=== PATIENT | female | born 1980 ===

== ENCOUNTER 2018-04-27 20:45 | Emergency (ER) | payer SELFPAY ==
[2018-04-27 21:20] VITALS: TEMP 98.7
[2018-04-27] MEDS ORDERED: Sodium Chloride 0.9% 1,000 ML IV ONE (21:33)
--- NOTE | 2018-04-27 21:33 | C.PDOC ---
History Of Present Illness 37 year old female, , presents to the ED c/o vaginal bleeding for the past 2 days ago. Patient also c/o mild pelvic cramping. Patient denies fever, chills, nausea, vomit, dysuria, hematuria, weakness, numbness. Time Seen by Provider: 04/27/18 21:32 Chief Complaint (Nursing): Female Genitourinary History Per: Patient History/Exam Limitations: no limitations Onset/Duration Of Symptoms: Days (2) Current Symptoms Are (Timing): Still Present Quality Of Discomfort: Cramping Associated Symptoms: denies: Nausea, Vomiting, Diarrhea, Urinary Symptoms Recent travel outside of the [place]: No Additional History Per: Patient Abnormal Vaginal Bleeding: Yes Last Menstral Period: 02/24/18 : 1 Para: 0 Past Medical History Reviewed: Historical Data, Nursing Documentation, Vital Signs Vital Signs: Last Vital Signs Temp 98.7 F 04/27/18 21:13 Pulse 79 04/27/18 21:13 Resp 16 04/27/18 21:13 BP 112/74 04/27/18 21:13 Pulse Ox 100 04/27/18 21:13 - Medical History PMH: No Chronic Diseases Surgical History: No Surg Hx Family History: States: Unknown Family Hx - Social History Hx Alcohol Use: No Hx Substance Use: No - Immunization History Hx Tetanus Toxoid Vaccination: No Hx Influenza Vaccination: No Hx Pneumococcal Vaccination: No Review Of Systems Constitutional: Negative for: Fever, Chills Cardiovascular: Negative for: Chest Pain, Palpitations Respiratory: Negative for: Cough, Shortness of Breath Gastrointestinal: Positive for: Abdominal Pain. Negative for: Nausea, Vomiting Genitourinary: Positive for: Vaginal Bleeding. Negative for: Dysuria, Hematuria Neurological: Negative for: Weakness, Numbness Physical Exam - Physical Exam Appears: Non-toxic, No Acute Distress Skin: Warm, Dry Head: Normacephalic Eye(s): bilateral: Normal Inspection Neck: Supple Chest: Symmetrical Cardiovascular: Rhythm Regular Respiratory: No Rales, No Rhonchi, No Wheezing Gastrointestinal/Abdominal: Soft, Tenderness (mild suprapubic), No Guarding, No Rebound Extremity: Bilateral: Atraumatic, Normal Color And Temperature, Normal ROM Neurological/Psych: Oriented x3, Normal Speech, Normal Cognition Gait: Steady ED Course And Treatment - Laboratory Results Result Diagrams: 04/27/18 22:40 04/27/18 22:40 O2 Sat by Pulse Oximetry: 100 (ON RA) Pulse Ox Interpretation: Normal - CT Scan/US pelvic US Other Rad Studies (CT/US): Read By Radiologist, Radiology Report Reviewed CT/US Interpretation: EXAM: US Pelvis, Complete Transvaginal and Transabdominal. COMPARISON: None provided. CLINICAL HISTORY: Vag bleed. TECHNIQUE: Transvaginal and transabdominal pelvic ultrasound (complete) with image documentation. FINDINGS: ENDOMETRIUM: The endometrium is grossly thickened and heterogeneous, measuring 2.5 cm and demonstrates internal vascularity. In the setting of vaginal bleeding and a positive urine hCG test, this most probably represents retained products of conception. UTERUS/CERVIX: Uterus measures 9.3 x 4.6 x 5.1 cm and is retroverted. No intrauterine gestation is seen. RIGHT OVARY: Right ovary measures 3.2 x 1.7 x 1.7 cm. LEFT OVARY: Left ovary measures 2.3 x 1.0 x 2.1 cm. FREE FLUID: No free fluid. MISCELLANEOUS: Both ovaries demonstrate normal Doppler waveforms. IMPRESSION: 1. The endometrium is grossly thickened and heterogeneous, measuring 2.5 cm and demonstrates internal vascularity. In the setting of vaginal bleeding and a positive urine hCG test, this most probably represents retained products of conception. 2. No intrauterine gestation is seen. 3. These findings are being telephoned to the referring clinician's at the time of interpretation. . Electronically signed on Apr 28, 2018 12:28:30 AM EDT by: Triny Pulido M.D., Certified by ABR, MSK, Neuroradiology Progress Note: Plan: - Labs. - IV fluids. - UA. - Pelvic US. pt had some more vaginal bleeding, with clots. spoke with dr ledesma [facility], will come and see the pt in the ed Reevaluation Time: 01:07 Reassessment Condition: Improved Medical Decision Making Medical Decision Making: Upon provider reevaluation patient is feeling better, is medically stable, and requires no further treatment in the ED at this time. Patient will be discharged home with Rx for cytotec, doxy . Counseling was provided and all questions were answered regarding diagnosis and need for follow up with the referred clinic. There is agreement to discharge plan. Return if symptoms persist or worsen. Disposition Counseled Patient/Family Regarding: Studies Performed, Diagnosis, Need For Followup, Rx Given - Disposition Referrals: [facility] [Outside] [facility] [Outside] [facility] [Outside] [facility] [Outside] Disposition: HOME/ ROUTINE Disposition Time: 21:33 Condition: FAIR Prescriptions: Doxycycline Hyclate 100 mg PO BID #14 capsule Ibuprofen [Motrin Tab] 800 mg PO TID PRN #12 tab PRN Reason: Pain, Moderate (4-7) miSOPROStol [Cytotec] 400 mcg PO TID #6 tab Instructions: Miscarriage (DC) Forms: [employer] (Turkmen) Print Language: VIETNAMESE - Clinical Impression Clinical Impression: Miscarriage - Scribe Statement The provider has reviewed the documentation as recorded by the Scribe Gumaro Charles All medical record entries made by the Scribe were at my direction and per sonally dictated by me. I have reviewed the chart and agree that the record accurately reflects my personal performance of the history, physical exam, medical decision making, and the department course for this patient. I have also personally directed, reviewed, and agree with the discharge instructions and disposition.
[2018-04-27 22:29] LABS: URINE BILIRUBIN NEGATIVE (NEGATIVE); URINE BLOOD 2+ (NEGATIVE); URINE CLARITY Hazy (Clear); URINE COLOR Red (YELLOW); URINE GLUCOSE (UA) NORMAL (Normal); URINE LEUKOCYTE ESTERASE NEG Leu/uL (Negative); URINE PROTEIN 2+ mg/dL (NEGATIVE); URINE UROBILINOGEN NORMAL mg/dL (0.2-1.0)
[2018-04-27 22:45] LABS: BASO % 0.3 % (0.0-2.0); EOS % 0.4 % (0.0-4.0); HEMOGLOBIN 11.9 g/dL (11.0-16.0); LYMPH % 21.5 % (20.0-40.0); MEAN CELL VOLUME 90.1 fL (81.0-99.0); MEAN CORPUSCULAR HEMOGLOBIN 29.1 pg (27.0-31.0); MEAN CORPUSCULAR HGB CONC 32.4 g/dL (33.0-37.0); MEAN PLATELET VOLUME 8.7 fL (7.2-11.7); MONO # 0.8 K/uL (0.0-0.8); MONO % 8.8 % (0.0-10.0); NEUT # 6.5 K/uL (1.8-7.0); RBC 4.08 Mil/uL (3.80-5.20); WHITE BLOOD COUNT 9.4 K/uL (4.8-10.8)
[2018-04-27 22:56] LABS: INR 1.2; PROTHROMBIN TIME 12.9 SECONDS (9.7-12.2)
[2018-04-27 23:00] LABS: ALB/GLOB RATIO 1.3 (1.0-2.1); ALBUMIN 3.8 g/dL (3.5-5.0); ALT/SGPT 20 U/L (9-52); AST/SGOT 24 U/L (14-36); BLOOD UREA NITROGEN 8 mg/dL (7-17); CALCIUM 8.7 mg/dl (8.6-10.4); GFR NON-AFRICAN AMERICAN > 60
[2018-04-28] MEDS ORDERED: Sodium Chloride 0.9% 1,000 ML IV ONE (00:23)
[2018-04-28] MEDS ORDERED: Sodium Chloride 0.9% 1,000 ML ONE (00:28)
--- NOTE | 2018-04-28 01:38 | CP.PCM.CON ---
History of Present Illness - History of Present Illness History of Present Illness: Asked by Dr. West to see patient: approx 8 weeks, c/o vaginal bleeding; S/P ultrasound - probable retained products Patient received on stretcher in Multi-Purpose Room. Appears saddened. Awake, alert, oriented to time, person and place. 37 y.o. , LMP 02/24/18 GA 8w 6d presented to E.D. secondary to increased vaginal bleeding with passage of blood and clots associated with strong, crampylower abdominal pain pain scale 8/10 -onset 1700 hours 04/26/18. - HPI: 2 days of vaginal spotting, increasing to heavy vaginal bleeding as above. Known to be . 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 x 2 years. 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 Father alive -hx unk Review of Systems - Review of Systems All systems: reviewed and no additional remarkable complaints except - Reproductive: Female Reproductive:Female: As Per HPI Past Patient History - Infectious Disease Hx of Infectious Diseases: None - Tetanus Immunizations Tetanus Immunization: Unknown - Past Medical History & Family History Past Medical History?: No Pertinent Family History: Mother - hypertension - Past Social History Smoking Status: Never Smoked Drugs: Denies Home Situation {Lives}: With Family - CARDIAC Hx Cardiac Disorders: No - PULMONARY Hx Respiratory Disorders: No - NEUROLOGICAL Hx Neurological Disorder: No - HEENT Hx HEENT Problems: No - RENAL Hx Chronic Kidney Disease: No - ENDOCRINE/METABOLIC Hx Endocrine Disorders: No - HEMATOLOGICAL/ONCOLOGICAL Hx Anemia: Yes - INTEGUMENTARY Hx Dermatological Problems: No - MUSCULOSKELETAL/RHEUMATOLOGICAL Hx Musculoskeletal Disorders: No - GASTROINTESTINAL Hx Gastrointestinal Disorders: No - GENITOURINARY/GYNECOLOGICAL Hx Genitourinary Disorders: No LMP:: 02/24/18 : 1 Para: 0 Termination of : 0 - PSYCHIATRIC Hx Psychophysiologic Disorder: No Hx Substance Use: No - SURGICAL HISTORY Hx Surgeries: No - ANESTHESIA Hx Anesthesia: No Meds Home Medications: Home Medication List Medication Instructions Recorded Confirmed Type Doxycycline Hyclate 100 mg PO BID #14 capsule 04/28/18 Rx Ibuprofen [Motrin Tab] 800 mg PO TID PRN #12 tab 04/28/18 Rx miSOPROStol [Cytotec] 400 mcg PO TID #6 tab 04/28/18 Rx Allergies/Adverse Reactions: Allergies Allergy/AdvReac Type Severity Reaction Status Date / Time No Known Allergies Allergy Verified 04/27/18 21:19 Physical Exam - Constitutional Appears: Well, No Acute Distress - Head Exam Head Exam: NORMOCEPHALIC - Eye Exam Eye Exam: Normal appearance - ENT Exam ENT Exam: Mucous Membranes Moist - Neck Exam Neck exam: Positive for: Full Rom - Respiratory Exam Respiratory Exam: NORMAL BREATHING PATTERN - Cardiovascular Exam Cardiovascular Exam: REGULAR RHYTHM - GI/Abdominal Exam GI & Abdominal Exam: Normal Bowel Sounds, Soft - Exam Speculum exam: Vaginal Bleeding (Moderate vaginal bleeding. Tissue noted extruding from cervical os. Same removed with ring forceps (submited to pathology)) Bimanual exam: NORMAL BIMANUAL EXAM (Cervical - fingertip. Retroverted uterus, approx 8 cm, firm, mobile, appropriately mildly tender. No adnexl masses or tenderness. ) - Extremities Exam Extremities exam: Positive for: full ROM, normal inspection - Back Exam Back exam: NORMAL INSPECTION - Neurological Exam Neurological exam: Alert, Oriented x3 - Psychiatric Exam Additional comments: Appropriately sad, crying during vaginal exam and removal of tissue - Skin Skin Exam: Dry, Intact, Normal Color Results - Vital Signs Recent Vital Signs: Last Vital Signs Temp 98.7 F 04/27/18 21:13 Pulse 79 04/27/18 21:13 Resp 16 04/27/18 21:13 BP 112/74 04/27/18 21:13 Pulse Ox 100 04/28/18 01:10 - Labs Result Diagrams: 04/27/18 22:40 04/27/18 22:40 Labs: Laboratory Results - last 24 hr 04/27/18 04/27/18 04/27/18 22:06 22:06 22:40 WBC 9.4 RBC 4.08 Hgb 11.9 Hct 36.7 MCV 90.1 MCH 29.1 MCHC 32.4 L RDW 14.0 Plt Count 219 MPV 8.7 Neut % (Auto) 69.0 Lymph % (Auto) 21.5 Lucas % (Auto) 8.8 Eos % (Auto) 0.4 Baso % (Auto) 0.3 Neut # (Auto) 6.5 Lymph # (Auto) 2.0 Lucas # (Auto) 0.8 Eos # (Auto) 0.0 Baso # (Auto) 0.0 PT INR APTT Sodium Potassium Chloride Carbon Dioxide Anion Gap BUN Creatinine Est GFR ( Amer) Est GFR (Non-Af Amer) Random Glucose Calcium Total Bilirubin AST ALT Alkaline Phosphatase Total Protein Albumin Globulin Albumin/Globulin Ratio Beta HCG, Quant Urine Color Red Urine Clarity Hazy Urine pH 6.0 Ur Specific Carlos 1.012 Urine Protein 2+ H Urine Glucose (UA) Normal Urine Ketones Negative Urine Blood 2+ H Urine Nitrate Negative Urine Bilirubin Negative Urine Urobilinogen Normal Ur Leukocyte Esterase Neg Urine RBC (Auto) 3212 H Urine HCG, Qual Positive Blood Type Antibody Screen 04/27/18 04/27/18 04/27/18 22:40 22:40 22:45 WBC RBC Hgb Hct MCV MCH MCHC RDW Plt Count MPV Neut % (Auto) Lymph % (Auto) Lucas % (Auto) Eos % (Auto) Baso % (Auto) Neut # (Auto) Lymph # (Auto) Lucas # (Auto) Eos # (Auto) Baso # (Auto) PT 12.9 H INR 1.2 APTT 31 Sodium 135 Potassium 3.9 Chloride 104 Carbon Dioxide 25 Anion Gap 10 BUN 8 Creatinine 0.4 L Est GFR ( Amer) > 60 Est GFR (Non-Af Amer) > 60 Random Glucose 81 Calcium 8.7 Total Bilirubin 0.5 AST 24 ALT 20 Alkaline Phosphatase 73 Total Protein 6.7 Albumin 3.8 Globulin 2.9 Albumin/Globulin Ratio 1.3 Beta HCG, Quant 2213.90 Urine Color Urine Clarity Urine pH Ur Specific Carlos Urine Protein Urine Glucose (UA) Urine Ketones Urine Blood Urine Nitrate Urine Bilirubin Urine Urobilinogen Ur Leukocyte Esterase Urine RBC (Auto) Urine HCG, Qual Blood Type O POSITIVE Antibody Screen Negative Assessment & Plan - Assessment and Plan (Free Text) Assessment: labs reviewed by me personally; along with ultrasound report- noted for thickened endometrium to 2.49 cm (suggestive of retained products of conception). Rh(+) 37 y.o. now P0010, S/P retrieval of products of conception - completed spontaneous . At this time, utilized [employer], [id number]. Patient given option of: 1) D&C; 2) versus medical management to ensure complete uterine evacuation. Patient has decided on option #2. Most common side effects of severe cramps was explained. It was also explained to expect vaginal spotting over the next few days, which should stop in about 1 weeks' time. And to take antibiotics as prescribed upon discharge. Patient expressed an understanding and no questions offered. Patient counseled to return to E.D. for heavy vaginal bleeding with dizziness, lightheadedness, syncope, foul odor per vagina. Also, to follow up [facility] in 1 week. Lastly, not to report to work x 1 week. Patient and appropriately saddened at the unfortunate turn of events. Empathy and support extended. Patient is otherwise clinically stable. Plan: 1) Discharge home 2) NPV x 1 week 3) Cytotec 400 micrograms TID x 2 days 4) Motrin 800 mg TID, PRN 5) Doxycycline 100 mg BID x 7 days 6) F/U [facility] in 1 weeks Thank you for the pleasure of this consultation - Date & Time Date: 04/28/18 Time: 01:57
[2018-04-28 01:49] VITALS: BP 110/70; PULSE 87; RESP 14; O2SAT 99
--- NOTE | 2018-04-28 10:18 | US ---
Date of service: 04/27/2018 HISTORY: vag bleed COMPARISON: None available. TECHNIQUE: Transabdominal and transvaginal pelvic ultrasound was performed. FINDINGS: UTERUS: Measures 9.3 x 4.6 x 5.1 cm. Normal in size and appearance. No fibroid or other mass lesion seen. ENDOMETRIUM: Measures 2.5 cm in diameter. The central endometrial echo complex is thick with increased central vascularity.. CERVIX: No cervical abnormality identified. RIGHT OVARY: Measures 3.2 x 1.7 x 1.7 cm. No solid mass. Normal flow. LEFT OVARY: Measures 2.3 x 1.0 x 2.1 cm. No solid mass. Normal flow. FREE FLUID: No significant free fluid noted. OTHER FINDINGS: None. IMPRESSION: Thick central endometrial echo complex with increased vascularity. With the stated clinical history of vaginal bleeding and positive beta HCG, retained products of conception are consideration. No evidence of intrauterine gestational sac. A preliminary report was provided by [employer].
== END 2018-04-28 01:49 | disposition home or self-care (01) ==
LOC: C.ER 20:45
DX: O03.9 Complete or unspecified spontaneous abortion without complication (principal); Z3A.08 8 weeks gestation of pregnancy
CPT/HCPCS: 76830; 76856; 80053; 81001; 84702; 84703; 85025; 85610; 85730; 86850; 86900; 88305; 99284; J7030